=== PATIENT | male | born 1950 | race Caucasian/White ===

== ENCOUNTER 2019-02-21 16:24 | Inpatient (IN) | payer MEDICARE, BC ==
[~2019-02-21] VITALS: Ht 175.3 cm; Wt 87.5 kg
[2019-02-21] MEDS ORDERED: VITAMIN B-1100 M1 PO (16:29)
[2019-02-21] MEDS ORDERED: PROPRANOLOL HCL60 MG PO (16:29)
[2019-02-21 16:51] LABS: BASOPHILS 0.2 % (0-2); EOSINOPHILS 0.7 % (0-7); HEMOGLOBIN 14.2 g/dL (13.5-17.5); IMMATURE GRANULOCYTES 0.5 % (0-5); LYMPHOCYTES 10.8 % (15-50); MCH 31.4 pg (26.0-34.0); MCHC 37.4 g/dL (31.0-37.0); MCV 84.1 fL (80.0-100.0); MEAN PLATELET VOLUME 9.4 fL (7.4-10.4); MONOCYTES 8.5 % (2-11); NEUTROPHILS 79.3 % (40-80); PLATELET COUNT 297 10x3/uL (130-400); RBC 4.52 10x6/uL (4.20-6.10); RDW 12.3 % (11.5-14.5); WBC 16.5 10x3/uL (4.8-10.8)
[2019-02-21 17:20] LABS: ALKALINE PHOSPHATASE 125 U/L (46-116); ALT (SGPT) 16 U/L (10-68); BILIRUBIN - TOTAL 0.89 mg/dL (0.2-1.3); CALC OSMOLALITY 253 mosm/kg (275-300); CALCIUM 8.9 mg/dL (8.5-10.1); CARBON DIOXIDE 22.3 mmol/L (21.0-32.0); CKMB 0.8 U/L (0.0-3.6); CREATINE KINASE 160 UL (21-232); CREATININE - SERUM 2.3 mg/dL (0.6-1.3); GLUCOSE 95 mg/dL (74-106); MAGNESIUM - SERUM 1.1 mg/dL (1.8-2.4); PROTEIN - SERUM 7.4 g/dL (6.4-8.2); SODIUM 123 mmol/L (136-145); THYROID STIMULATING HORMONE 1.65 uIU/mL (0.36-3.74); TROPONIN-I 0.053 ng/mL (0.000-0.060); UREA NITROGEN 28 mg/dL (7-18); eGFR NON AFRICAN AMERICAN 30 mL/min (90-120)
[2019-02-21 17:28] LABS: POTASSIUM - SERUM 2.6 mmol/L (3.5-5.1)
[2019-02-21 17:31] LABS: CHLORIDE - SERUM 85 mmol/L (98-107)
[2019-02-21 17:32] LABS: APTT 29.6 SECONDS (22.8-39.4); INR 1.1 (0.85-1.17); PROTIME 13.7 SECONDS (11.6-15.0)
[2019-02-21 17:37] VITALS: BP 118/60
--- NOTE | 2019-02-21 19:03 | MORECARE ---
CASE MANAGEMENT DISCHARGE SUMMARY PATIENT: MARKUS PATEL UNIT: [id number] ADM DATE: 02/21/19 AGE: 68 : 52 SEX: M ROOM/BED: D.1208 AUTHOR: KEATON,DOC PHYSICIAN: REFERRING PHYSICIAN: CHELA PATEL MD DATE OF SERVICE: 02/21/19 Discharge Plan Patient Name: MARKUS PATEL Facility: [facility]:[place] : 1950 Planned Disposition: Home Anticipated Discharge Date: 02/24/19 Discharge Date: Expected LOS: 3 Initial Reviewer: [email or web address] Initial Review Date: 02/21/2019 Generated: 02/21/19 8:03 pm DCP- Discharge Planning Updated by [email or web address]: Evelin Hummel on 02/21/19 6:[address] Patient Name: MARKUS PATEL Admission Status: ER Accout number: [id number] Admission Date: 02-21-2019 : 1950 Admission Diagnosis: Attending: CHELA PATEL Current LOS: 1 Anticipated DC Date: 02-24-2019 Planned Disposition: Home Primary Insurance: MEDICARE A & B Discharge Planning Comments: CM met with patient and his significant other, Kylee Luna to complete initial dc planning assessment. CM educated patient on the CM role and verbal consent given by patient to complete assessment. Patient lives at home with his significant other. He is usually independent in his care a home. He does not use any assisted devices for ambulation. His confusion has improved since he has been here in the ER. At discharge patient plans to return and feels this is a safe discharge. CM discussed availability of home health, rehab services, and medical equipment. Patient denied known discharge needs at this time. CM will continue to follow and will assist as needed with dc plans/needs. Wildlife Biology Technician: Evelin Hummel RN, [facility] DCPIA - Discharge Planning Initial Assessment Updated by [email or web address]: Evelin Hummel on 02/21/19 6:59 pm * Is the patient Alert and Oriented? Yes * How many steps to enter\exit or inside your home? One * PCP Dr. Andrea * Pharm[facility] [address] * Preadmission Environment Home with Family * ADLs Independent * Equipment None * List name and contact numbers for known caregivers / representatives who currently or will assist patient after discharge: Kylee Luna [facility] - [phone] * Verbal permission to speak to the caregivers and representatives has been obtained from the patient. Yes * Community resources currently utilized None * Additional services required to return to the preadmission environment? No * Can the patient safely return to the preadmission environment? Yes * Has this patient been hospitalized within the prior 30 days at any hospital? No Patient Name: MARKUS PATEL Page 15313 at 1903 All edits/amendments must be made on the electronic document DICTATION DATE: 02/21/191901 CIGARETTE PAPER TESTER: ANDREW 02/21/191901 RPT#: [id number] DC DATE: STATUS: ADM IN [facility] [address] [place] [address] END OF REPORT
[2019-02-21 21:23] VITALS: BP 126/47
[2019-02-22] VITALS (7 sets, daily range): BP systolic 81–200; BP diastolic 42–90; BMI 28.5
[2019-02-22 05:13] LABS: APPEARANCE CLEAR (CLEAR); BILIRUBIN NEGATIVE (NEGATIVE); COLOR YELLOW (YELLOW); GLUCOSE NEGATIVE (NEGATIVE); KETONE NEGATIVE (NEGATIVE); NITRITE NEGATIVE (NEGATIVE); PROTEIN NEGATIVE (NEGATIVE); UROBILINOGEN NORMAL (NORMAL)
[2019-02-22 06:02] LABS: BASOPHILS 0.3 % (0-2); EOSINOPHILS 1.9 % (0-7); HEMATOCRIT 33.7 % (42.0-54.0); HEMOGLOBIN 12.2 g/dL (13.5-17.5); IMMATURE GRANULOCYTES 0.5 % (0-5); LYMPHOCYTES 13.8 % (15-50); MCHC 36.2 g/dL (31.0-37.0); MCV 85.5 fL (80.0-100.0); MEAN PLATELET VOLUME 9.8 fL (7.4-10.4); MONOCYTES 11.8 % (2-11); NEUTROPHILS 71.7 % (40-80); PLATELET COUNT 266 10x3/uL (130-400); RBC 3.94 10x6/uL (4.20-6.10); RDW 12.5 % (11.5-14.5)
[2019-02-22 06:15] LABS: ALBUMIN 3.1 g/dL (3.4-5.0); ANION GAP 14.4 mmol/L (8-16); BILIRUBIN - TOTAL 0.54 mg/dL (0.2-1.3); CARBON DIOXIDE 25.1 mmol/L (21.0-32.0); PROTEIN - SERUM 6.2 g/dL (6.4-8.2)
[2019-02-22 06:28] LABS: CREATININE - SERUM 1.5 mg/dL (0.6-1.3)
[2019-02-22 06:30] LABS: POTASSIUM - SERUM 2.5 mmol/L (3.5-5.1)
[2019-02-22 11:11] LABS: % SATURATION 21 % (15-55); IRON 58 ug/dl (35-150); TOTAL IRON BIND CAPACITY 264 ug/dl (260-445); UNSAT IRON BIND CAPACITY 206 ug/dl (150-375)
[2019-02-22 12:37] LABS: UDS - AMPHET NEGATIVE QUAL (NEGATIVE); UDS - BARB NEGATIVE QUAL (NEGATIVE); UDS - BENZO NEGATIVE QUAL (NEGATIVE); UDS - COCAINE NEGATIVE QUAL (NEGATIVE); UDS - OPIATE NEGATIVE QUAL (NEGATIVE); UDS - PCP NEGATIVE QUAL (NEGATIVE); UDS - THC NEGATIVE QUAL (NEGATIVE)
[2019-02-22 20:35] LABS: TROPONIN-I 0.055 ng/mL (0.000-0.060)
[2019-02-22 20:37] LABS: POTASSIUM - SERUM 2.9 mmol/L (3.5-5.1)
[2019-02-23] VITALS: BP 87/65
[2019-02-23 07:24] VITALS: BP 86/60
[2019-02-23 07:43] LABS: BASOPHILS 0.5 % (0-2); HEMATOCRIT 33.7 % (42.0-54.0); HEMOGLOBIN 12.2 g/dL (13.5-17.5); IMMATURE GRANULOCYTES 0.4 % (0-5); LYMPHOCYTES 15.6 % (15-50); MCHC 36.2 g/dL (31.0-37.0); MCV 85.8 fL (80.0-100.0); MEAN PLATELET VOLUME 9.6 fL (7.4-10.4); NEUTROPHILS 68.5 % (40-80); PLATELET COUNT 214 10x3/uL (130-400); RBC 3.93 10x6/uL (4.20-6.10); RDW 12.6 % (11.5-14.5); WBC 10.5 10x3/uL (4.8-10.8)
[2019-02-23 07:58] LABS: ALKALINE PHOSPHATASE 106 U/L (46-116); ALT (SGPT) 13 U/L (10-68); BILIRUBIN - TOTAL 0.34 mg/dL (0.2-1.3); CALC OSMOLALITY 263 mosm/kg (275-300); CALCIUM 8.3 mg/dL (8.5-10.1); CARBON DIOXIDE 21.7 mmol/L (21.0-32.0); CHLORIDE - SERUM 99 mmol/L (98-107); GLUCOSE 106 mg/dL (74-106); PROTEIN - SERUM 6.1 g/dL (6.4-8.2); SODIUM 131 mmol/L (136-145); UREA NITROGEN 16 mg/dL (7-18)
[2019-02-23 08:13] LABS: MAGNESIUM - SERUM 1.5 mg/dL (1.8-2.4); POTASSIUM - SERUM 3.7 mmol/L (3.5-5.1); eGFR NON AFRICAN AMERICAN 79 mL/min (90-120)
[2019-02-23 11:55] VITALS: BP 88/63
[2019-02-23 15:41] VITALS: BP 83/44
[2019-02-23 20:08] VITALS: BP 82/38
[2019-02-24 00:30] VITALS: BP 128/61
[2019-02-24 05:27] LABS: BASOPHILS 0.4 % (0-2); EOSINOPHILS 5.4 % (0-7); HEMATOCRIT 31.6 % (42.0-54.0); HEMOGLOBIN 10.9 g/dL (13.5-17.5); IMMATURE GRANULOCYTES 0.4 % (0-5); LYMPHOCYTES 27.3 % (15-50); MCH 30.6 pg (26.0-34.0); MCHC 34.5 g/dL (31.0-37.0); MEAN PLATELET VOLUME 9.6 fL (7.4-10.4); MONOCYTES 8.5 % (2-11); PLATELET COUNT 193 10x3/uL (130-400); RBC 3.56 10x6/uL (4.20-6.10); RDW 12.9 % (11.5-14.5)
[2019-02-24 05:28] LABS: MCV 88.8 fL (80.0-100.0); WBC 7.6 10x3/uL (4.8-10.8)
[2019-02-24 05:38] LABS: ALBUMIN 2.6 g/dL (3.4-5.0); ALKALINE PHOSPHATASE 99 U/L (46-116); ALT (SGPT) 12 U/L (10-68); BILIRUBIN - TOTAL 0.26 mg/dL (0.2-1.3); CALC OSMOLALITY 277 mosm/kg (275-300); CALCIUM 8.7 mg/dL (8.5-10.1); CARBON DIOXIDE 24.6 mmol/L (21.0-32.0); CHLORIDE - SERUM 105 mmol/L (98-107); CREATININE - SERUM 0.8 mg/dL (0.6-1.3); GLUCOSE 89 mg/dL (74-106); MAGNESIUM - SERUM 1.6 mg/dL (1.8-2.4); POTASSIUM - SERUM 3.6 mmol/L (3.5-5.1); PROTEIN - SERUM 5.4 g/dL (6.4-8.2); SODIUM 139 mmol/L (136-145); UREA NITROGEN 16 mg/dL (7-18); eGFR NON AFRICAN AMERICAN > 90 mL/min (90-120)
[2019-02-24 05:45] VITALS: BP 130/62
[2019-02-24 08:00] VITALS: BP 139/67
[2019-02-24 12:00] VITALS: BP 109/63
[2019-02-24 13:57] VITALS: Ht 175.3 cm; Wt 87.5 kg
[2019-02-24 16:00] VITALS: BP 136/70
[2019-02-24 21:00] VITALS: BP 140/68
[2019-02-25 00:25] VITALS: BP 150/79
[2019-02-25 04:25] VITALS: BP 160/75
[2019-02-25 08:06] LABS: ALBUMIN 2.7 g/dL (3.4-5.0); ALKALINE PHOSPHATASE 88 U/L (46-116); ALT (SGPT) 13 U/L (10-68); BILIRUBIN - TOTAL 0.22 mg/dL (0.2-1.3); CALC OSMOLALITY 274 mosm/kg (275-300); CALCIUM 8.3 mg/dL (8.5-10.1); CARBON DIOXIDE 27.6 mmol/L (21.0-32.0); CHLORIDE - SERUM 102 mmol/L (98-107); CREATININE - SERUM 0.8 mg/dL (0.6-1.3); GLUCOSE 94 mg/dL (74-106); POTASSIUM - SERUM 3.8 mmol/L (3.5-5.1); PROTEIN - SERUM 5.5 g/dL (6.4-8.2); SODIUM 137 mmol/L (136-145); UREA NITROGEN 14 mg/dL (7-18); eGFR NON AFRICAN AMERICAN > 90 mL/min (90-120)
[2019-02-25 08:18] VITALS: BP 147/78
[2019-02-25 08:19] LABS: BASOPHILS 0.5 % (0-2); HEMATOCRIT 29.8 % (42.0-54.0); HEMOGLOBIN 10.4 g/dL (13.5-17.5); IMMATURE GRANULOCYTES 0.2 % (0-5); LYMPHOCYTES 19.3 % (15-50); MCHC 34.9 g/dL (31.0-37.0); MCV 88.7 fL (80.0-100.0); MEAN PLATELET VOLUME 9.7 fL (7.4-10.4); MONOCYTES 9.4 % (2-11); NEUTROPHILS 65.6 % (40-80); PLATELET COUNT 188 10x3/uL (130-400); RBC 3.36 10x6/uL (4.20-6.10); RDW 12.8 % (11.5-14.5); WBC 6.5 10x3/uL (4.8-10.8)
[2019-02-25 11:00] LABS: FOLATE (FOLIC ACID) - SERUM 16.6 ng/mL (>3.0)
[2019-02-25 12:48] VITALS: BP 150/74
[2019-02-25 15:29] VITALS: BP 144/72
--- NOTE | 2019-02-25 16:17 | MORECARE ---
CASE MANAGEMENT DISCHARGE SUMMARY PATIENT: MARKUS PATEL UNIT: [id number] ADM DATE: 02/21/19 AGE: 68 : 52 SEX: M ROOM/BED: D.1208 AUTHOR: ELIGIO PUGH PHYSICIAN: REFERRING PHYSICIAN: CHELA PATEL MD DATE OF SERVICE: 02/25/19 Discharge Plan Patient Name: MARKUS PATEL Facility: [facility]:[place] : 1950 Planned Disposition: Home Anticipated Discharge Date: 02/24/19 Discharge Date: Expected LOS: 3 Initial Reviewer: [email or web address] Initial Review Date: 02/21/2019 Generated: 02/25/19 5:17 pm Comments DCP- Discharge Planning Updated by [email or web address]: Sarah Lopez on 02/25/19 3:[address] Patient Name: MARKUS PATEL Encounter No: [id number] : 1950 Primary Insurance: MEDICARE A & B Anticipated DC Date: 02-24-2019 Planned Disposition: Home External Planned Provider: : DCP follow-up note: Patient and significant other in agreement with discharge plan. CM explained and served DC IMM. Significant other will transport patient home upon discharge. No changes to plan. Case management will follow and assist as needed. Sarah Lopez DCP- Discharge Planning Updated by [email or web address]: Evelin Hummel on 02/21/19 6:[address] Patient Name: MARKUS PATEL Admission Status: ER Accout number: [id number] Admission Date: 02-21-2019 : 1950 Admission Diagnosis: Attending: CHELA PATEL Current LOS: 1 Anticipated DC Date: 02-24-2019 Planned Disposition: Home Primary Insurance: MEDICARE A & B Discharge Planning Comments: CM met with patient and his significant other, Kylee Luna to complete initial dc planning assessment. CM educated patient on the CM role and verbal consent given by patient to complete assessment. Patient lives at home with his significant other. He is usually independent in his care a home. He does not use any assisted devices for ambulation. His confusion has improved since he has been here in the ER. At discharge patient plans to return and feels this is a safe discharge. CM discussed availability of home health, rehab services, and medical equipment. Patient denied known discharge needs at this time. CM will continue to follow and will assist as needed with dc plans/needs. Bulk Pigment Reducer: Evelin Hummel RN, [facility] DCPIA - Discharge Planning Initial Assessment Updated by [email or web address]: Evelin Hummel on 02/21/19 6:59 pm * Is the patient Alert and Oriented? Yes * How many steps to enter\exit or inside your home? One * PCP Dr. Andrea * [facility] [address] * Preadmission Environment Home with Family * ADLs Independent * Equipment None * List name and contact numbers for known caregivers / representatives who currently or will assist patient after discharge: Kylee Luna - [facility] - [phone] * Verbal permission to speak to the caregivers and representatives has been obtained from the patient. Yes * Community resources currently utilized None * Additional services required to return to the preadmission environment? No * Can the patient safely return to the preadmission environment? Yes * Has this patient been hospitalized within the prior 30 days at any hospital? No Last DP export: 02/21/19 6:03 p Patient Name: MARKUS PATEL Page 87220 at 1617 All edits/amendments must be made on the electronic document DICTATION DATE: 02/25/191616 MARKETING EDUCATION TEACHER: ANDREW 02/25/191616 RPT#: [id number] DC DATE: STATUS: ADM IN [facility] [address] [place] [address] END OF REPORT
[2019-02-25] MEDS ORDERED: BETAPACE 80 MG80 MG PO (18:24)
--- NOTE | 2019-02-26 13:24 | MORECARE ---
CASE MANAGEMENT DISCHARGE SUMMARY PATIENT: MARKUS PATEL UNIT: [id number] ADM DATE: 02/21/19 AGE: 68 : 52 SEX: M ROOM/BED: D.1208 AUTHOR: ELIGIO PUGH PHYSICIAN: REFERRING PHYSICIAN: CHELA PATEL MD DATE OF SERVICE: 02/26/19 Discharge Plan Patient Name: MARKUS PATEL Facility: [facility]:[place] : 1950 Planned Disposition: Home Anticipated Discharge Date: 02/24/19 Discharge Date: 02/25/2019 Expected LOS: 3 Initial Reviewer: [email or web address] Initial Review Date: 02/21/2019 Generated: 02/26/19 2:24 pm Comments DCP- Discharge Planning Updated by [email or web address]: Sarah Lopez on 02/25/19 3:[address] Patient Name: MARKUS PATEL Encounter No: [id number] : 1950 Primary Insurance: MEDICARE A & B Anticipated DC Date: 02-24-2019 Planned Disposition: Home External Planned Provider: : DCP follow-up note: Patient and significant other in agreement with discharge plan. CM explained and served DC IMM. Significant other will transport patient home upon discharge. No changes to plan. Case management will follow and assist as needed. Sarah Lopez DCP- Discharge Planning Updated by [id number]: Evelin Hummel on 02/21/19 6:[address] Patient Name: MARKUS PATEL Admission Status: ER Accout number: [id number] Admission Date: 02-21-2019 : 1950 Admission Diagnosis: Attending: CHELA PATEL Current LOS: 1 Anticipated DC Date: 02-24-2019 Planned Disposition: Home Primary Insurance: MEDICARE A & B Discharge Planning Comments: CM met with patient and his significant other, Kylee Luna to complete initial dc planning assessment. CM educated patient on the CM role and verbal consent given by patient to complete assessment. Patient lives at home with his significant other. He is usually independent in his care a home. He does not use any assisted devices for ambulation. His confusion has improved since he has been here in the ER. At discharge patient plans to return and feels this is a safe discharge. CM discussed availability of home health, rehab services, and medical equipment. Patient denied known discharge needs at this time. CM will continue to follow and will assist as needed with dc plans/needs. Plant Operations Manager: Evelin Hummel RN, [facility] DCPIA - Discharge Planning Initial Assessment Updated by [email or web address]: Evelin Hummel on 02/21/19 6:59 pm * Is the patient Alert and Oriented? Yes * How many steps to enter\exit or inside your home? One * PCP Dr. Andrea * Pharmacy [facility] on [address] * Preadmission Environment Home with Family * ADLs Independent * Equipment None * List name and contact numbers for known caregivers / representatives who currently or will assist patient after discharge: Kylee Luna - sig other - [phone] * Verbal permission to speak to the caregivers and representatives has been obtained from the patient. Yes * Community resources currently utilized None * Additional services required to return to the preadmission environment? No * Can the patient safely return to the preadmission environment? Yes * Has this patient been hospitalized within the prior 30 days at any hospital? No Coverage Notice Reviewer: [email or web address] Augusto Lopez Notice Issued Date-Time: 02/25/2019 15:25 Notice Type: IM Discharge Notice Notice Delivered To: Other Relationship to Patient: Power of Boiler/Chiller Technician Model And Mold Maker Plaster Name: Kylee Luna Delivery Method: - Cristina Days: Prior Verbal Notification: Recipient Understood Notice: Recipient Signature: Med Rec Note Co-signed by Attending: Coverage Notice Comment: Last DP export: 02/25/19 3:17 p Patient Name: MARKUS PATEL Page 86327 at 1324 All edits/amendments must be made on the electronic document DICTATION DATE: 02/26/19 1324 HOLE DIGGER: ANDREW 02/26/19 1324 RPT#: [id number] DC DATE:02/25/19 STATUS: DIS IN [facility] [address] [place] [address] END OF REPORT
--- NOTE | 2019-02-26 14:39 | CN ---
PATIENT NAME:MARKUS PATEL MEDICAL RECORD: [id number] : 54 LOCATION:D. D.1208 ADMIT DATE: 02/21/19 ACCOUNT: [id number] CONSULTING PHYSICIAN: YOLANDE CASILLAS MD REFERRING PHYSICIAN: CHELA PATEL MD DATE OF CONSULTATION: 02/23/2019 DIAGNOSES: 1. Paroxysmal atrial fibrillation. 2. Hypotension. 3. History of atrial fibrillation. 4. Recent GI bleed - intolerance of anticoagulation. HISTORY: This is a gentleman who presents with hypotension and weakness, being treated for impending sepsis. He had a history of atrial fibrillation, for which he was on propranolol. He initially was in sinus rhythm when he came in. He has since gone into atrial fibrillation in the 130 range. He has not had any chest pain or chest discomfort. He does have a history of being on Pradaxa in the past, but had a recent GI bleed, for which Pradaxa was discontinued. He does remain still anemic, but no acute GI bleeding with hemoglobin of 12. PHYSICAL EXAMINATION: GENERAL APPEARANCE: Well-nourished, well-developed, appears stated age. Level of distress, comfortable. PSYCHIATRIC: Mental status, alert, normal affect. Orientation, oriented to time, place and person. EYES: Lids and conjunctiva, noninjected. No discharge, no pallor. ENT: Lips, teeth, gums, normal dentition. Oropharynx, no cyanosis, no pallor. NECK: Carotid arteries, bilateral normal upstroke, no bruits, no thrills. JUGULAR VEINS: No jugular venous pressure or distention. CERVICAL LYMPH NODES: Nontender, nonenlarged. THYROID: Not enlarged. Nontender. No nodules. LUNGS: Respiratory effort, unlabored. CHEST: Normal curvature. No thoracic deformity. No chest wall tenderness. Percussion, resonant. Auscultation, clear. No wheezes, no rales, no rhonchi. CARDIOVASCULAR: Precordial exam, nondisplaced. No heaves or pericardial thrills. Rate and rhythm, regular. Heart sounds, normal S1, normal S2. No S3, no gallop, no rub. Systolic murmur, not heard. Diastolic murmur, not heard. EXTREMITIES: No cyanosis, no edema. Peripheral pulses, full and equal in all extremities, except as noted. No bruits appreciated. ABDOMEN: Soft, nondistended. Normal aorta. No bruit. Nontender. No masses. Liver, nontender, no hepatomegaly. Spleen, nontender, no splenomegaly. MUSCULOSKELETAL: No joint tenderness. No joint swelling. No erythema. NEUROLOGICAL: Normal gait, normal strength, normal tone. SKIN: Warm and dry. OVERALL IMPRESSION: Atrial fibrillation. At this time, we will discontinue the propranolol and put him on sotalol 80 mg b.i.d. Hopefully, this will do a better job of controlling his atrial fibrillation without decreasing his blood pressure any further. We will get an echocardiogram. Otherwise, no other cardiac workup or treatment is necessary at this time. TRANSINT:[id number] Voice Confirmation ID: [id number] DOCUMENT ID: [id number] CONSULT REPORT [id number] MARKUS PATEL JEFFREY MD at 1439 CC: [id number] DICTATION DATE: 02/23/19 1128 JV BASEBALL COACH: 02/23/19 1236 DIS IN 02/25/19 [place] [address] [id number] [place] [address]
--- NOTE | 2019-02-26 14:39 | EC ---
PATIENT:MARKUS PATEL DATE OF SERVICE: 02/21/19 SEX: M MEDICAL RECORD: [id number] DATE OF : [birth year] LOCATION:D.M3 D.120 AGE OF PATIENT: 68 ADMISSION DATE: 02/21/19 REFERRING PHYSICIAN: INTERPRETING PHYSICIAN: YOLANDE DELEON MD ECHOCARDIOGRAM REPORT ECHO CHARGES 4 ECHO COMPLETE Date: 02/23/19 CLINICAL DIAGNOSIS: VALVULAR HEART DISEASE ECHOCARDIOGRAPHIC MEASUREMENTS (adult normal given) AC root (d.<3.7cm) 3.4 cm LV Septum d (<1.2 cm> 0.8 cm Valve Excursion 1.5 cm LV Septum (systole) 1.2 cm Left Atria (s.<4.0cm> 3.8 cm LVPW d(<1.2cm) 1.4 cm RV (d.<2.3cm) 2.6 cm LVPW (sytole) 1.7 cm LV diastole(<5.6CM) 5.4 cm MV E-F(>70mm/sec) cm LV systole 4.7 cm LVOT Diameter 2.1 cm MV exc.(>10mm) cm Est.ejection fraction (50-75%) % DOPPLER: LVIT cm/sec A 40 cm/sec E 91 cm/sec LA cm/sec RVSP 20.3 mmHg LVOT 238 cm/sec AOP1/2T m/s Asc. Ao 189 cm/sec RVOT 87 cm/sec RA cm/sec PA 101 cm/sec AV Gradient Peak 14.3 mmHg AV Mean 7.0 mmHg AV Area 4.7 cm MV Gradient Peak 4.7 mmHg MV Mean 1.7 mmHg MV Area cm COMMENTS: Neurological Surgeon: Anneliese WAGNERKAMALA GABINO It Systems Administrator: 1 Dr. Deleon TAPE# PACS Pericardial Effusion N DATE OF SERVICE: 02/23/2019 FINDINGS: 1. Left ventricular chamber size is within normal limits. Left ventricular systolic function is normal. Overall ejection fraction is estimated at 60%. 2. Left atrium, right atrium, and right ventricular sizes are within normal limit. 3. Valvular structures have normal structure and motion. 4. Doppler interrogation reveals trace mitral regurgitation and mild tricuspid regurgitation. No other valvular insufficiency or stenosis. ECHOCARDIOGRAM REPORT [id number] MARKUS PATEL 5. No evidence of pericardial effusion or left ventricular thrombus. Pulmonary systolic pressure is normal, estimated at 20 mmHg. TRANSINT:[id number] Voice Confirmation ID: [id number] DOCUMENT ID: [id number] YOLANDE DELEON MD at 1439 CC: [id number] DICTATION DATE: 02/23/19 1328 RUG WASHER: 02/23/191928 DIS IN 02/25/19 [facility] [address] [id number]
== END 2019-02-25 19:00 | disposition home or self-care (01) | DRG 315 ==
LOC: D.ER 16:24 → D.M3 18:29
PROVIDERS: Emergency Medicine; ADMIT Internal Medicine Nephrology; ATTEND Internal Medicine Nephrology
DX: I95.9 Hypotension, unspecified (principal); N17.9 Acute kidney failure, unspecified; E87.1 Hypo-osmolality and hyponatremia; R55 Syncope and collapse; R00.1 Bradycardia, unspecified; E87.6 Hypokalemia; E83.42 Hypomagnesemia; D50.9 Iron deficiency anemia, unspecified; I10 Essential (primary) hypertension; I48.0 Paroxysmal atrial fibrillation

== ENCOUNTER 2019-04-22 15:51 | Inpatient (IN) | payer MEDICARE, BC ==
[~2019-04-22] VITALS: Ht 175.3 cm; Wt 81.4 kg
[~2019-04-22 15:51] MED LIST: BETAPACE 80 MG80 MG PO; PROPRANOLOL HCL60 MG PO; VITAMIN B-1100 M1 PO
--- NOTE | 2019-04-22 16:16 | NUR ---
URINE SPECIMEN COLLECTED AND SENT TO LAB
--- NOTE | 2019-04-22 16:41 | NUR ---
PT SCREENED POSITIVE ON [place]IA SUICIDE SCREEN. BEHAVIORAL HEALTH NURSE CALLED TO ASSESS PATIENT. PT IN ROOM CLOSE TO NURSE STATION FOR CLOSE MONITORING. PT'S FIANCE AT BEDSIDE.
[2019-04-22 16:42] LABS: BASOPHILS 0.2 % (0-2); EOSINOPHILS 0.1 % (0-7); HEMATOCRIT 35.5 % (42.0-54.0); HEMOGLOBIN 12.8 g/dL (13.5-17.5); IMMATURE GRANULOCYTES 0.3 % (0-5); LYMPHOCYTES 10.3 % (15-50); MCH 30.7 pg (26.0-34.0); MCHC 36.1 g/dL (31.0-37.0); MCV 85.1 fL (80.0-100.0); MEAN PLATELET VOLUME 9.4 fL (7.4-10.4); MONOCYTES 15.8 % (2-11); NEUTROPHILS 73.3 % (40-80); RBC 4.17 10x6/uL (4.20-6.10); RDW 14.1 % (11.5-14.5); WBC 12.2 10x3/uL (4.8-10.8)
[2019-04-22 16:44] LABS: COLOR YELLOW (YELLOW)
[2019-04-22 16:45] LABS: APPEARANCE CLEAR (CLEAR); BILIRUBIN NEGATIVE (NEGATIVE); GLUCOSE NEGATIVE (NEGATIVE); KETONE SMALL mg/dL (NEGATIVE); NITRITE NEGATIVE (NEGATIVE); PROTEIN TRACE mg/dL (NEGATIVE); SPECIFIC GRAVITY 1.015 (1.005-1.020); UROBILINOGEN NORMAL (NORMAL)
[2019-04-22 16:46] LABS: PLATELET COUNT 255 10x3/uL (130-400)
[2019-04-22 16:58] LABS: UDS - AMPHET NEGATIVE QUAL (NEGATIVE); UDS - BARB NEGATIVE QUAL (NEGATIVE); UDS - BENZO NEGATIVE QUAL (NEGATIVE); UDS - COCAINE NEGATIVE QUAL (NEGATIVE); UDS - OPIATE NEGATIVE QUAL (NEGATIVE); UDS - PCP NEGATIVE QUAL (NEGATIVE); UDS - THC NEGATIVE QUAL (NEGATIVE)
--- NOTE | 2019-04-22 17:08 | NUR ---
PT UNABLE TO ASSESS FOR SUICIDE AT THIS TIME DUE TO PT. HAS WORD SALAD. SPOKE WITH ATTENDING REGARDING ASSESSMENT FINDINGS. DRUG SCREEN ORDERED PER ATTENDING MD. CHARGE NURSE AND ATTENDING NOTIFIED REAGRDING UNABLE TO ASSESS PT AT THIS TIME. PT WILL BE REEVALUATED.
[2019-04-22 17:10] LABS: ALBUMIN 3.6 g/dL (3.4-5.0); ALKALINE PHOSPHATASE 134 U/L (46-116); ALT (SGPT) 21 U/L (10-68); BILIRUBIN - TOTAL 0.61 mg/dL (0.2-1.3); CALC OSMOLALITY 265 mosm/kg (275-300); CALCIUM 9.2 mg/dL (8.5-10.1); CARBON DIOXIDE 25.3 mmol/L (21.0-32.0); CHLORIDE - SERUM 96 mmol/L (98-107); CREATININE - SERUM 0.8 mg/dL (0.6-1.3); GLUCOSE 102 mg/dL (74-106); POTASSIUM - SERUM 3.6 mmol/L (3.5-5.1); PROTEIN - SERUM 6.6 g/dL (6.4-8.2); SODIUM 132 mmol/L (136-145); UREA NITROGEN 14 mg/dL (7-18); eGFR NON AFRICAN AMERICAN > 90 mL/min (90-120)
[2019-04-22 17:11] LABS: LIPASE 240 U/L (73-393); MAGNESIUM - SERUM 1.9 mg/dL (1.8-2.4); THYROID STIMULATING HORMONE 1.25 uIU/mL (0.36-3.74); TROPONIN-I 0.023 ng/mL (0.000-0.060)
[2019-04-22 20:03] VITALS: BP 170/84; BMI 26.5
--- NOTE | 2019-04-22 20:49 | NUR ---
NEW ADMIT TO DOCTOR SELLERS ON SHELTER FOR ALTERED MENTAL STATUS. PATIENT HAS BECOME MORE CONFUSED AND SPEAKING WORD SALAD. PATIENT TRANSPORTED FROM [facility] VIA WHEELCHAIR. ACCOMPANIED BY HIS . UPON ARRIVAL TO SHELTER, PATIENT IS VERY CONFUSED BUT COOPERATIVE WITH CARE AND ADMISSION ASSESSMENTS. CONSENT TO TREAT RECEIVED FROM AIDEE SCHNEIDER. CODE STATUS DISCUSSED WITH AND PATIENT IS TO BE A DNR. CODE WORD IS JM.
[2019-04-23 07:14] LABS: BASOPHILS 0.4 % (0-2); EOSINOPHILS 1.8 % (0-7); HEMATOCRIT 35.1 % (42.0-54.0); HEMOGLOBIN 12.3 g/dL (13.5-17.5); IMMATURE GRANULOCYTES 0.3 % (0-5); LYMPHOCYTES 22.5 % (15-50); MCH 30.4 pg (26.0-34.0); MCV 86.9 fL (80.0-100.0); MEAN PLATELET VOLUME 8.9 fL (7.4-10.4); MONOCYTES 14.3 % (2-11); NEUTROPHILS 60.7 % (40-80); PLATELET COUNT 211 10x3/uL (130-400); RBC 4.04 10x6/uL (4.20-6.10); RDW 14.4 % (11.5-14.5)
[2019-04-23 07:36] LABS: ALBUMIN 3.4 g/dL (3.4-5.0); ALKALINE PHOSPHATASE 117 U/L (46-116); ALT (SGPT) 23 U/L (10-68); BILIRUBIN - TOTAL 0.62 mg/dL (0.2-1.3); CALC OSMOLALITY 269 mosm/kg (275-300); CALCIUM 9.1 mg/dL (8.5-10.1); CARBON DIOXIDE 30.4 mmol/L (21.0-32.0); CHLORIDE - SERUM 99 mmol/L (98-107); CHOL - HDL RATIO 1.3 ratio (2.3-4.9); CHOLESTEROL, TOTAL 89 mg/dL (0-200); CREATININE - SERUM 0.8 mg/dL (0.6-1.3); GLUCOSE 92 mg/dL (74-106); HDL CHOLESTEROL 69 mg/dL (32-96); LDL CHOLESTEROL 17 mg/dL (0-100); LDL-HDL RATIO 0.2 ratio (1.5-3.5); POTASSIUM - SERUM 3.5 mmol/L (3.5-5.1); PROTEIN - SERUM 6.5 g/dL (6.4-8.2); SODIUM 135 mmol/L (136-145); THYROID STIMULATING HORMONE 0.99 uIU/mL (0.36-3.74); TRIGLYCERIDE 19 mg/dL (30-200); UREA NITROGEN 12 mg/dL (7-18); eGFR NON AFRICAN AMERICAN > 90 mL/min (90-120)
[2019-04-23 07:44] LABS: WBC 7.8 10x3/uL (4.8-10.8)
[2019-04-23 09:00] VITALS: BP 169/79
--- NOTE | 2019-04-23 09:41 | NUR ---
PT IS ALERT AND ORIENTED TO PERSON. PT IS CONFUSED AND SPEAKING WORD SALAD. CALM AND COOPERATIVE WITH ASSESSMENT. MED COMPLIANT. REDIRECT AND REORIENT NEEDED. FALL PRECAUTIONS IN PLACE. WILL CPOC.
[2019-04-23 10:44] VITALS: BMI 26.4
[2019-04-23 16:30] VITALS: Ht 175.3 cm; Wt 81.4 kg
[2019-04-23 20:00] VITALS: BP 87/60
--- NOTE | 2019-04-23 21:09 | NUR ---
RECEIVED IN DAYROOM. SITTING IN A CHAIR WITH PEERS AT HIS SIDE. CALM AND COOPERATIVE WITH CARE AND ASSESSMENT. REDIRECT AND REORIENT. ENCOURAGE TO EXPRESS NEEDS. RESTING IN CHAIR AT THIS TIME. CONTINUE PLAN OF CARE
[2019-04-24 06:12] LABS: VITAMIN D 25 HYDROXY 40.2 ng/mL (30.0-100.0)
[2019-04-24 07:18] LABS: RAPID PLASMA REAGIN Non Reactive (Non Reactive)
--- NOTE | 2019-04-24 08:20 | NUR ---
REC'D PATIENT SITING IN DINING AREA. RESP EVEN AND NONLABORED. NO ACUTE DISTRESS NOTED. PT IS MED COMPLIANT. CONFUSION NOTED. PT IS ABLE TO HOLD A CONVERSION AT THIS TIME. PT IS ABLE TO AMBULATE WITH CLOSE ASSISTANCE. NO BEHAVIORS OR WORD SALAD NOTED AT THIS TIME. WILL CONT PLAN OF CARE. WILL CONT TO MONITOR Q 15 MINS FOR SAFETY.
[2019-04-24 08:37] VITALS: BP 115/60
[2019-04-24 09:17] LABS: FOLATE (FOLIC ACID) - SERUM 15.3 ng/mL (>3.0)
--- NOTE | 2019-04-24 15:03 | PSY ---
PATIENT NAME:MARKUS PATEL MEDICAL RECORD: [id number] : 54 LOCATION:CarinaEster[facility]AMARILeanne Dejesus5 ADMISSION DATE: 04/22/19 ACCOUNT: [id number] PSYCHIATRIC EVALUATION DATE OF EVALUATION: 04/23/19 IDENTIFYING DATA: The patient is 68 years old and he is admitted to the hospital on a voluntary basis. CHIEF COMPLAINT: Psychosis. HISTORY OF PRESENT ILLNESS: The patient apparently has had an acute onset of bizarre behavior. He is talking in a nonsensical way, repeating and stuttering phrases and some words that are not well connected. Apparently, this started acutely 3 days ago. The patient was brought to the Emergency Room yesterday. Why his did not bring him earlier considering how bizarre the behavior is, is unknown to me. Basic lab, neuro imaging, and neurologic evaluations including a drug screen were performed in the Emergency Room and all were negative. He has been referred to the Mental Health for further evaluation. The patient is not really interviewable. He is cooperative, but he answers questions in a virtually unintelligible manner. He does have a history of drug or alcohol abuse. PAST MEDICAL HISTORY: Significant for hypertension and atrial fibrillation. PAST PSYCHIATRIC HISTORY: None at this time. FAMILY HISTORY: Significant for hypertension. ALLERGIES: No known drug allergies. CURRENT MEDICATIONS: Betapace. SOCIAL HISTORY: The patient is . I am not sure who brought him to the hospital if it was a or girlfriend. He apparently does have a significant history of drug and alcohol use, but none recently and so certainly there is nothing that would explain this acute onset of symptoms unless he is used something that it is not detectable on our ordinary drug screen panel. ASSETS: Supportive family members. LIABILITIES: Limited insight. DIAGNOSTIC IMPRESSION: AXIS I: Psychosis, not otherwise specified. AXIS II: None. AXIS III: Cardiac arrhythmia. AXIS IV: Moderate. AXIS V: Global assessment of functioning is 20. PLAN: At this time, the patient is admitted to the hospital secondary to bizarre behaviors associated with what may be a dementing illness. It may also be related to a substance abuse issue. At this point, I am just going to treat him with a low dose of an antipsychotic, try to obtain further information and will make a more long-term decision about what his needs are when I have a better grasp on the situation. TRANSINT:[id number] Voice Confirmation ID: [id number] DOCUMENT ID: [id number] IRAM SELLERS MD at 1503 CC: [id number] DICTATION DATE: 04/23/19 1555 CORPORATE TRAVEL MANAGER: 04/23/19 1633 ADM IN [facility] [address] [place] [address]
--- NOTE | 2019-04-24 18:31 | NUR ---
PATIENT SITTING AND WATCHING T.V. RESP EVEN AND NONLABORED. NO ACUTE DISTRESS NOTED. MED COMPLIANT. SOME CONFUSION NOTED. NO WORD SALAD NOTED DURING SHIFT. AMBULATES. VISITED WITH TOLERATED WELL. WILL CONT PLAN OF CARE.
[2019-04-24 20:00] VITALS: BP 81/49
--- NOTE | 2019-04-24 20:50 | NUR ---
PT. HAS SOME CONFUSION BUT NO "WORD SALAD" NOTED. COMPLIANT WITH MEDS. WILL FOLLOW POC
[2019-04-25 09:26] VITALS: BP 90/56
--- NOTE | 2019-04-25 11:30 | NUR ---
B) The patient is awake and alert. He is pleasant. He ambulates independently. He has been polite. I) Provide prescribed meds, redirect as needed. R) The patient is compliant with meds and unit milieu. He follows direction well. P) Continue POC.
--- NOTE | 2019-04-25 15:50 | NUR ---
The patient's spouse called to check on the patient to see how he is doing. Did let her know he is doing well, all lab tests are unremarkable at this time.
--- NOTE | 2019-04-25 15:53 | PN ---
PATIENT:MARKUS PATEL MEDICAL RECORD: [id number] LOCATION:[facility] [address] ADMISSION DATE: 04/22/19 PROGRESS NOTE DATE OF SERVICE: 04/24/2019 SUBJECTIVE: The patient's case was discussed with staff. He has no new complaint. OBJECTIVE: The patient is oriented today. He is speaking in a logical and coherent manner. I have questioned him in detail about the possibility of using any illicit substance and it is negative. He is denying psychotic symptoms. He says he thinks he is ready to go home. ASSESSMENT: Psychosis, not otherwise specified. PLAN: I am certainly pleased the patient is better. I do not feel at all comfortable letting him go home right now. I would like to see him improve or have this level of improvement continue. It is also disconcerting that I do not have any idea what precipitated this episode. It did not look like a postictal state. He has denied ingesting anything. There may not be an answer to this or he may simply not be telling me the truth about what he has taken or perhaps he does not remember. At any rate, I am going to put him on a low dose of Trilafon to help organize his thought processes, but I am encouraged by his improvement and do not think he needs to be on this medication terminal carman. TRANSINT:[id number] Voice Confirmation ID: [id number] DOCUMENT ID: [id number] IRAM SELLERS MD at 1553 CC: [id number] DICTATION DATE: 04/24/19 1620 SHIPPING AND RECEIVING CLERK: 04/24/19 1734 ADM IN [place] [id number] [place] [id number]
[2019-04-25] MEDS ORDERED: PERPHENAZINE2 MG PO (17:47)
--- NOTE | 2019-04-25 19:18 | NUR ---
CALLED REGARDING DISCHARGE, PT.'S STATED, "I'M OUT OF TOWN AND WON'T BE BACK UNTIL TOMORROW". INFORMED HER TO CALL UNIT IN THE MORNING BEFORE COMING TO LET STAFF GET BELONGINGS AND PAPERWORK READY.
[2019-04-25 20:03] VITALS: BP 120/72
--- NOTE | 2019-04-25 21:13 | NUR ---
PATIENT IS ALERT AND ORIENTED TO SELF, PLACE AND TIME, COMPLIANT WITH MEDS. PT. WAS READY TO GO HOME, INFORMED HIM THAT HIS WAS OUT OF TOWN AND THAT SHE WOULD PICK HIM UP TOMORROW. VERBALIZED UNDERSTANDING. WILL FOLLOW POC
--- NOTE | 2019-04-26 07:30 | NUR ---
Called the patient's spouse and let her know the patient has been d/c'd she is upset and said "What do you mean, I was told he would be there a few days to get to the bottom of this." Explained to her that he is no longer psychotic and the DrEster has released him. She became upset and said "What?" Called Dr. Chaney and he again stated that "There is no need for him to stay in an inpatient psyche unit, he is no longer psychotic." Called the patients spouse back and let her know that Dr. Chaney has released the patient and that she will need to come pick the patient up." She said "Ok, it will be later, I have to make arrangements, he can not stay here alone, those drug dealers will be right back and he will be taking those synthetic drugs again." She said she will be here at 1:00 pm today.
--- NOTE | 2019-04-26 08:13 | NUR ---
Sheela called and states that Ms. Luna requests that Dr. Chaney call or meet with her as she does not understand. Did text Dr. Chaney.
--- NOTE | 2019-04-26 11:29 | PN ---
PATIENT:MARKUS PATEL MEDICAL RECORD: [id number] LOCATION:[facility] ADMISSION DATE: 04/22/19 PROGRESS NOTE DATE OF SERVICE: 04/25/2019 SUBJECTIVE: The patient's case was discussed with staff. He has no new complaint. OBJECTIVE: The patient is in good behavioral control. He is fully oriented, cooperative, and shows no evidence of acute or direct psychosis. ASSESSMENT: Psychosis, not otherwise specified. PLAN: I am convinced this patient has had taken something of a mind-altering nature prior to admission. It was not detected in the urine, but the almost immediate improvement in his condition with an antipsychotic in his current state now, I am left with little else that I could use to explain this. This is chronic mental illness. He had no reason to be delirious and in fact he did not look delirious. He was speaking in word salad and I think he may well have tried something and is just too embarrassed to tell me about it. He is completely rational and reasonable in every way right now. The acuity of the unit is deeply bothering him. He is certainly not suicidal or psychotic and he wants to go home. I have given him every gentle encouragement to tell me the truth or to tell me if he has used something because I am concerned that I don't know what happened. He is almost dismissive about his lack of concern, which leads me to believe that he probably knows what he has done. Nothing like this has ever happened before. He has had no psychiatric treatment. I feel fairly confident that he had taken something that caused him to become acutely disorganized and is now out of his system. ASSESSMENT: Psychosis, NOS. PLAN: The patient will be given Trilafon for at least 2 weeks to recover from this. His long-term prognosis is guarded. 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
--- NOTE | 2019-04-26 11:45 | NUR ---
Dr. Chaney did call the patient's significant other and they discussed that the patient is discharged. Apparently there is some issues going on between them at home. She did disclose that Michael does use drugs. Dr. Chaney explained that he is no longer psychotic and the other situation is more of a legal problem. Jeremy verbalized understanding.
[2019-04-26 11:51] VITALS: BP 172/77
--- NOTE | 2019-04-26 12:18 | NUR ---
SPOKE WITH PARTNER TO SET UP DISCHARGE TIME. PATIENT IS SET TO DISCHARGE AT 1530.
--- NOTE | 2019-04-26 15:44 | NUR ---
PATIENT DISCHARGED HOME WITH [facility]. PAPERWORK GIVEN, INSTRUCTIONS EXPLAINED. PAPERWORK FAXED TO PRIMARY DOCTOR. PATIENT BELONGINGS GIVEN TO PATIENT. PATIENT STABLE AT THE TIME OF DISCHARGE.
--- NOTE | 2019-04-27 12:15 | PN ---
PATIENT:MARKUS PATEL MEDICAL RECORD: [id number] LOCATION:[facility] ADMISSION DATE: 04/22/19 PROGRESS NOTE DATE OF SERVICE: 04/26/2019 SUBJECTIVE: The patient's case was discussed with staff. He has no new complaint. OBJECTIVE: The patient is fully oriented to person, place, time and situation. His mood is euthymic. His affect is appropriate. Thought processes are goal directed. His memory, concentration, and abstraction abilities are intact. He has no thoughts of harming himself or others and no psychotic symptoms. ASSESSMENT: Psychosis, NOS. PLAN: The patient was to be discharged last night. His significant other, who is not his , that is to say they are not legally , but they live in the same house and in fact they built a house together on the [address]. She could not come get him last night because she was out of town at a wedding. This morning, she was concerned about him being discharged. I spoke with her on the phone for 30 minutes. I answered all of her questions and concerns. She is not happy about him coming home, but she understands when I explained that he does not have any symptoms that I can justify continued inpatient stay to Medicare. He tells me very interesting things about him that he has been buying drugs from some body in a house or trailer near her. She knows who they are. She has called the police about it. The police so far have not made any arrests. She has even had the police come out with a drug sniffing dog and they found some pills under his bed that were not hers and that he did not have a prescription for. She does not know what they were. They were taken away and no arrests were made or citations issued. The patient himself continues to insist he has never taken any drugs and never would. This is completely different than what his girlfriend is saying. She says that she is frightened of him when he becomes intoxicated or high. Clearly, he was quite out of touch with reality and disorganized in his thought processes because of having taken something that is not detectable on our normal urine drug patterns. She tells me she has had him in the Emergency Room at other facilities before where he has tested positive for benzos and opiates. He denies having had any of this. The patient is going to be discharged today. She is going to come and get him. I have recommended to her that she not live with him if he continues to use drugs and that if she sees him behaving in a bizarre way he could potentially become dangerous because he is out of touch with reality. I have explained this to the patient again who insists upon telling me he has never used drugs despite the history given by the girlfriend. The patient says that he is not worried about having another event like this. It is my opinion that the patient is completely intact cognitively and that he has the ability to shape his choices and behaviors to conformity with law and societal standards. He clearly become psychotic when choosing to take those substances and then acting in a dangerous or irresponsible way would not relieve him of any culpability. I have offered him inpatient residential or outpatient substance abuse treatment and he has denied all of it, saying he does not need it. I am going to release him today. I do not think he is dangerous. I have explained the circumstances and I think that this is all that I can reasonably do at this point. I am going to continue him on the Trilafon for the next 2 days. His long-term prognosis is guarded and that prognosis will be almost entirely contingent upon him being abstinent from PROGRESS NOTE [id number] MARKUS PATEL drugs and alcohol. The girlfriend who has been in a relationship with him for the past 4 years says that he has been a very heavy drinker through his adult life that he would drink as much as a 30-pack of beer a day. He did develop the atrial fibrillation back last fall and now she says he has quit drinking, but he has turned to the illicit drugs. Interestingly, the patient tells me he quit drinking many years ago and that he never drank anything close to this amount. Given the normality on his mental status examination, I can only conclude that either he is lying to me or the fiancee is lying to me. The stories just simply do not match. Again, the patient is not showing any abnormal signs at all at this point. He is requesting discharge and refusing the substance abuse treatment because he does not have a substance abuse problem. 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
== END 2019-04-26 15:42 | disposition home or self-care (01) | DRG 885 ==
LOC: D.ER 15:51 → D.PSYCH 18:12
PROVIDERS: Family Medicine; ADMIT Psychiatry & Neurology Psychiatry; ATTEND Psychiatry & Neurology Psychiatry
DX: F29 Unspecified psychosis not due to a substance or known physiological condition (principal); I10 Essential (primary) hypertension; I48.91 Unspecified atrial fibrillation; D72.829 Elevated white blood cell count, unspecified